=== PATIENT | male | born 1955 | race Caucasian/White ===

== ENCOUNTER 2019-09-10 03:53 | Inpatient (IN) | payer OTHER, SELFPAY ==
[2019-09-10] VITALS (16 sets, daily range): BP systolic 100–158; BP diastolic 54–99; PULSE 67–119; RESP 16–34; TEMP 36–36.6; O2SAT 84–100; BMI 16.2
--- NOTE | ~2019-09-10 | XR_ITS ---
EXAMINATION: XR chest 1V portable DATE: 09/14/2019 10:17 INDICATION: Left pneumothorax. TECHNIQUE: A single frontal view of the chest was obtained. COMPARISON: Chest 2 views 09/13/2019 FINDINGS: A calcified left lung nodule is consistent with old granulomatous disease. There is mild at electasis at left lung base. No pleural effusion or pneumothorax. A left-sided chest tube is noted. T here is gas in left chest wall. IMPRESSION: 1. No pneumothorax. Left-sided chest tube in expected position. 2. Mild atelectasis at left lung base. Reviewed, dictated and finalized at location A.
--- NOTE | ~2019-09-10 | XR_ITS ---
EXAMINATION: XR chest-chest tube insert/pos EXAM DATE: 09/11/2019 08:14 INDICATION: Left pneumothorax. TECHNIQUE: Portable AP frontal chest x-ray was obtained. Comparison is made to prior examination from 556 a.m. same date. FINDINGS: Again there is a large left pneumothorax with mild contralateral midline shift indicating c ould be under some tension. There is a left-sided large caliber chest tube which is extending along t he lateral aspect of the thoracic wall, may not be within the pleural cavity given pneumothorax appea rs unchanged. There is collapsed left lung. Right lung is clear. Hyperinflation likely indicating und erlying emphysema and/or COPD. No pleural effusion. Cardiomediastinal silhouette is normal. IMPRESSION: 1. Large left pneumothorax unchanged. 2. Left chest tube which might be along thoracic wall rather than in the pleural cavity. I phoned this finding to nurse caring for patient in 344, who reports that Dr. Lucho Barajas revi ewed the image and has already repositioned the tube. Reviewed, dictated and finalized at location B. IMPRESSION: 1. Large left pneumothorax unchanged. 2. Left chest tube which might be along thoracic wall rather than in the pleur al cavity. I phoned this finding to nurse caring for patient in 344, who reports that Dr. Lucho Barajas reviewed the image and has already repositioned the tube.
--- NOTE | ~2019-09-10 | XR_ITS ---
EXAMINATION: XR chest 1V portable DATE: 09/11/2019 06:05 INDICATION: Pneumothorax. TECHNIQUE: A single frontal view of the chest was obtained. COMPARISON: Chest single view at 12:48 AM. FINDINGS: There is a large left pneumothorax. There are airspace opacities in the collapsed left lung , likely atelectasis. No pleural effusion. The heart size is normal. There is gas in left chest wall and left neck. There are old healed left rib fractures. IMPRESSION: 1. Worsened large left pneumothorax. Reviewed, dictated and finalized at location A.
--- NOTE | ~2019-09-10 | XR_ITS ---
EXAMINATION: XR chest-chest tube insert/pos DATE: 09/10/2019 05:07 INDICATION: Left pneumothorax status post chest tube placement. TECHNIQUE: A single frontal view of the chest was obtained. COMPARISON: Chest single view at 4:11 AM. FINDINGS: The lungs are hyperexpanded with lucencies, consistent with emphysema. There is mild atelec tasis in left mid and lower lung zones. No pleural effusion or pneumothorax. There is a left-sided ch est tube in expected position. There is gas in left chest wall. The heart size is normal. The central pulmonary arteries are enlarged, consistent with pulmonary arterial hypertension. IMPRESSION: 1. No pneumothorax. Left-sided chest tube in expected position. 2. Mild atelectasis in left mid and lower lung zones. 3. Emphysema. Reviewed, dictated and finalized at location A.
--- NOTE | ~2019-09-10 | XR_ITS ---
EXAMINATION: XR chest 1V portable DATE: 09/12/2019 06:51 INDICATION: Left pneumothorax. TECHNIQUE: A single frontal view of the chest was obtained. COMPARISON: Chest single view 09/11/2019 FINDINGS: There is mild atelectasis in left mid and lower lung zones. No pleural effusion or pneumoth orax. There is a left-sided chest tube in expected position. The heart size is normal. Again seen is gas in left chest wall. IMPRESSION: 1. No pneumothorax. Left-sided chest tube in expected position. 2. Mild atelectasis in left mid and lower lung zones. Reviewed, dictated and finalized at location A.
--- NOTE | ~2019-09-10 | XR_ITS ---
EXAMINATION: XR chest 1V portable DATE: 09/13/2019 06:31 INDICATION: Left pneumothorax. TECHNIQUE: A single frontal view of the chest was obtained on 2 radiographs. COMPARISON: Chest single view 09/12/2019 FINDINGS: There is mild atelectasis in right lower lung zone and left mid and lower lung zones. Calci fied pulmonary nodules and calcified hilar lymph nodes are consistent with old granulomatous disease. No pleural effusion or pneumothorax. There is a left-sided chest tube in expected position. The hear t size is normal. Again seen is gas in left chest wall. Pneumomediastinum is noted. IMPRESSION: 1. No pneumothorax. Left-sided chest tube in expected position. 2. Persistent pneumomediastinum. 3. Worsened mild atelectasis in right lower lung zone and left mid and lower lung zones. Reviewed, dictated and finalized at location A. IMPRESSION: 1. No pneumothorax. Left-sided chest tube in expected position. 2. Persistent pneumomediastinum. 3. Worsened mild atelectasis in right lower lung zone and left mid and lower raquel ng zones.
--- NOTE | ~2019-09-10 | XR_ITS ---
EXAMINATION: XR chest 1V portable DATE: 09/11/2019 01:06 INDICATION: Left pneumothorax status post chest tube removal. TECHNIQUE: A single frontal view of the chest was obtained. COMPARISON: Chest single view 09/10/2019 FINDINGS: There is a recurrent large left pneumothorax. There are airspace opacities in left lung, li alina atelectasis. No pleural effusion. The heart size is normal. There is mild rightward shift of the mediastinum. There is gas in left chest wall. There are old healed left rib fractures. IMPRESSION: 1. Recurrent large left pneumothorax. Dr. Beltran discussed this result with Sarah Shahid on 09/11/19 at 1 :16 AM. Reviewed, dictated and finalized at location A. IMPRESSION: 1. Recurrent large left pneumothorax. Dr. Beltran discussed this result with Sarah Shahid on 09/11/19 at 1:16 AM.
--- NOTE | ~2019-09-10 | XR_ITS ---
EXAMINATION: XR chest-chest tube insert/pos DATE: 09/11/2019 08:40 INDICATION: Left pneumothorax status post chest tube placement. TECHNIQUE: A single frontal view of the chest was obtained. COMPARISON: Chest single view at 800 a.m. FINDINGS: There is mild atelectasis in left lung. Calcified pulmonary nodules and calcified hilar lym ph nodes are consistent with old granulomatous disease. No pleural effusion or pneumothorax. There is a left-sided chest tube in expected position. There is gas in left chest wall. The heart size is nor mal. IMPRESSION: 1. No pneumothorax. Left-sided chest tube in expected position. 2. Mild atelectasis in left lung. Reviewed, dictated and finalized at location A.
--- NOTE | ~2019-09-10 | XR_ITS ---
EXAMINATION: XR chest 1V portable DATE: 09/15/2019 06:33 INDICATION: Left pneumothorax. TECHNIQUE: A single frontal view of the chest was obtained. COMPARISON: Chest single view 09/14/2019 FINDINGS: The patient is rotated to his left. There is mild atelectasis at left lung base. No pleural effusion or pneumothorax. The heart size is normal. There is gas in left chest wall. There is a left -sided chest tube in expected position. IMPRESSION: 1. No pneumothorax. Left-sided chest tube in expected position. 2. Mild atelectasis at left lung base. Reviewed, dictated and finalized at location A.
--- NOTE | ~2019-09-10 | XR_ITS ---
EXAMINATION: XR chest 1V portable DATE: 09/16/2019 05:57 INDICATION: Left pneumothorax. TECHNIQUE: A single frontal view of the chest was obtained. COMPARISON: Chest single view 09/15/2019 FINDINGS: There is mild atelectasis at left lung base. No pleural effusion or pneumothorax. There is a left-sided chest tube in expected position. The heart size is normal. There is gas in left chest wa ll. IMPRESSION: 1. No pneumothorax. Left-sided chest tube in expected position. 2. Mild atelectasis at left lung base. Reviewed, dictated and finalized at location A.
--- NOTE | ~2019-09-10 | XR_ITS ---
EXAMINATION: XR chest 1V portable DATE: 09/10/2019 04:22 INDICATION: Shortness of breath. TECHNIQUE: A single frontal view of the chest was obtained. COMPARISON: None. FINDINGS: The lungs are hyperexpanded with lucencies, consistent with emphysema. There is a large lef t pneumothorax. No pleural effusion. The heart size is normal. IMPRESSION: 1. Large left pneumothorax. 2. Emphysema. Reviewed, dictated and finalized at location A.
--- NOTE | ~2019-09-10 | XR_ITS ---
EXAMINATION: XR chest 2V DATE: 09/13/2019 12:03 INDICATION: Left pneumothorax. TECHNIQUE: Frontal and lateral views of the chest were obtained. COMPARISON: Chest single view at 5:54 AM FINDINGS: There is mild atelectasis in left mid and lower lung zones. There is a tiny left pneumothor ax. There is a left-sided chest tube in expected position. No pleural effusion. The heart size is nor mal. There is gas in left chest wall. The heart size is normal. IMPRESSION: 1. Tiny left pneumothorax. Left-sided chest tube in expected position. 2. Mild atelectasis in left mid and lower lung zones. Reviewed, dictated and finalized at location A.
--- NOTE | 2019-09-10 03:34 | ED.SOB ---
HPI - SOB/Dyspnea General Chief Complaint: Shortness of Breath/Dyspnea Stated Complaint: SOB Time Seen by Provider: 09/10/19 03:30 Source: patient Mode of arrival: EMS Limitations: no limitations History of Present Illness HPI Narrative: A 63 y/o male pt has presented to the ED via EMS with c/o SOB that began tonight. Pt reports associated midsternal CP, and describes the pain as achy. Pt denies rhinorrhea, sore throat, or fever. Pt states that he has a h/o COPD and asthma. He also reports smoking 1 ppd. Pt denies a h/o heart failure or recent surgery. He also denies drinking, drugs, or recent sick contacts. Pt was previously hospitalized 1 month ago. Pt was at one point on 6L of oxygen, but he is currently on 4L of oxygen in the ED bed. Pt does not normally receive oxygen at home. MD elicited complaint: shortness of breath Pertinent past history: COPD and asthma Onset (ago): hour(s) (earlier tonight) Known history of: COPD and asthma Associated symptoms: chest pain (midsternal, achy) Related Data Home oxygen amount: none Home Medications Medication Instructions Recorded Confirmed No Home Medications 09/10/19 09/10/19 Allergies Allergy/AdvReac Type Severity Reaction Status Date / Time No Known Allergies Allergy Verified 09/10/19 03:52 Review of Systems Review of Systems: All systems reviewed & are unremarkable except as noted in HPI and below Constitutional: Constitutional: Denies fever(s) ENT: Denies sore throat and Denies other (rhinorrhea) Cardiovascular: Cardiovascular: Reports chest pain (midsternal, achy) Respiratory: Respiratory: Reports dyspnea PMFSH Past Medical History Medical History Asthma COPD (chronic obstructive pulmonary disease) Surgical History Surgical History No pertinent past surgical history Social History Social History Smoking packs per day: 1 Smoking cigarettes per day: 20.0 Smoking status: Current every day smoker Tobacco type: cigarettes Alcohol intake: never Substance use: never Gender identity (if verbalized by the patient): Male Exam Narrative: Exam Narrative: GENERAL: Uncomfortable/anxious-appearing, thin, and inmoderate distress. HEAD: Normocephalic, atraumatic. EYES: PERRL and EOMI. ENT: Mucous membranes moist. CHEST: Diminished breath sounds throughout with increased respiratory rate. Speaking in 5-7 word sentence. Supraclavicular retractions noted. HEART: Tachycardic and regular. Normal peripheral pulses. ABDOMEN: Soft, nontender, nondistended. EXTREMITIES: Normal range of motion. No edema. SKIN: Warm, dry, no rash. NEURO: Alert and oriented x3. PSYCH: Anxious with normal thought content.. Course Reevaluation(s) Reevaluation #1: Discussed with Dr. Thayer. Accepted pt. Suction 20cm H2O. Lung reinflated on post chest x-ray. Date: 09/10/19 Time: 05:02 Reevaluation #2: Patient is still anxious requires a lot of redirection. He is aware he has a chest tube in his side but he is constantly wanting to move out of the bed. He has been been educated that if he pulls his chest tube this could be life-threatening. Patient's oxygen is been down titrated with success. Breath sounds auscultated bilaterally. Date: 09/10/19 Time: 05:41 Vital Signs Vital signs: Vital Signs Respiratory Rate 34 H 09/10/19 03:43 Temperature 97.4 F L 09/10/19 05:40 Pulse Rate 94 09/10/19 05:40 Respiratory Rate 18 09/10/19 05:40 Blood Pressure 112/75 09/10/19 05:40 Pulse Oximetry 100 09/10/19 05:40 Procedures Chest Tube Chest Tube 1: Chest Tube Date: 09/10/19 Chest Tube Time: 04:40 Chest Tube Location: left, mid axillary line and fourth interspace Tube Type: quik thal Chest Tube Prep: Yes other Anesthetic: with epi Amount of anesthesia used (mL): 6 Incis
[2019-09-10] MEDS: ALBUTEROL SULFATE NEB 2.5 MG/0.5 ML INH 5 MG INHALATION (03:37)
[2019-09-10] MEDS: IPRATROPIUM BR 0.02% INH SOLN 0.5 MG/2.5 ML VIAL INHALATION (03:37)
--- NOTE | 2019-09-10 03:37 | ECG_ITS ---
Measurements Intervals [place] Rate: 118 P: 83 GA: 146 QRS: 87 QRSD: 88 T: 66 QT: 307 QTc: 430 Interpretive Statements SINUS TACHYCARDIA CANNOT RULE OUT SEPTAL INFARCT, AGE INDETERMINATE BASELINE ARTIFACT- I, II, III, AVL, AVF, V4-V6 ABNORMAL ECG Electronically Signed On 09-10-2019 6:59:41 CDT by Jori Henning D.O.
[2019-09-10 03:53] LABS: Basophils Absolute Auto 0.1 K/mm3 (0.0-0.1); Basophils Percent Auto 0.9 % (0.2-1.2); Eosinophils Absolute Auto 0.6 K/mm3 (0-0.3); Eosinophils Percent Auto 3.5 % (0-4.4); Hematocrit 49.7 % (42.0-52.0); Immature Granulocyte Absolute 0.13 K/mm3 (0.00-0.031); Immature Granulocyte Percent A 0.8 % (0-0.5); Lymphocytes Absolute Auto 6.72 K/mm3 (0.9-3.2); Lymphocytes Percent Auto 41.9 % (18.3-44.2); Mean Corpuscular HGB Conc 32.2 g/dl (32-36); Mean Corpuscular Hemoglobin 29.1 pg (26-34); Mean Corpuscular Volume 90.5 fl (80-100); Mean Platelet Volume 9.7 fl (7.4-10.4); Monocytes Percent Auto 6.5 % (2.6-8.5); Neutrophils Absolute Auto 7.5 K/mm3 (1.3-6.7); Neutrophils Percent Auto 46.4 % (45.5-73.1); Platelet Count Result 396 k/mm3 (150-375); Red Blood Count 5.49 M/mm3 (4.6-6.20); Red Cell Distribution Width 13.1 % (11.5-14.5); White Blood Count 16.1 K/mm3 (4.5-10.0)
[2019-09-10] MEDS: LORAZEPAM INJ 2 MG/ML VIAL 1 MG IV PUSH (03:56)
[2019-09-10 04:12] LABS: Alanine Aminotransferase 16 U/L (4-50); Albumin Level 4.2 g/dL (3.5-5.1); Alkaline Phosphatase 83 U/L (38-126); Aspartate Amino Transferase 24 U/L (17-59); Bilirubin,Total 0.2 mg/dL (0.2-1.3); Blood Urea Nitrogen 19 mg/dL (9-20); Calcium 9.1 mg/dL (8.4-10.2); Carbon Dioxide 35 mmol/L (22-30); Chloride 101 mmol/L (98-107); Estimated CRCL calculation 80 ml/min; Estimated Glomerular Filt Rate > 60; Glucose 181 mg/dL (75-110); Potassium 4.1 mmol/L (3.4-5.0); Sodium 140 mmol/L (137-145)
[2019-09-10 04:13] LABS: Alveolar/Arterial O2 Gradient 558.2 mmHg; Base Excess ABG -0.3 mEq/l (+/-2.0); Carboxyhemoglobin 2.6 % THb (0-2.0); Fractional Inspired Oxygen 100 %; HCO3 ABG 29.1 mEq/l (22.0-26.0); Methemoglobin ABG 0.4 %THb (0-1.5); Oxygen Content ABG 21.2 %vol (16.0-22.0); Oxygen Saturation ABG 94.7 % (95.0-100.0); Oxyhemoglobin 92.3 % THb (90.0-100.0); PO2 ABG 86.2 mmHg (80.0-100.0); PO2 FiO2 Ratio Arterial Blood 0.86 %; Reduced Hemoglobin 4.7 %THb (0-5.0); Total Hemoglobin 16.3 g/dL (12.0-18.0)
[2019-09-10 04:15] LABS: pH ABG 7.246 (7.350-7.450)
[2019-09-10 04:16] LABS: Device NON-REBREATHER MASK; Modified Allen's Test Pass; PCO2 ABG 68.6 mmHg (35.0-45.0); Site Drawn LEFT RADIAL
[2019-09-10] MEDS: MIDAZOLAM HCL 2 MG/2 ML VIAL 1 MG IV PUSH (04:30)
--- NOTE | 2019-09-10 05:30 | ECG_ITS ---
Measurements Intervals [place] Rate: 103 P: 81 TX: 148 QRS: 75 QRSD: 85 T: 79 QT: 317 QTc: 416 Interpretive Statements SINUS TACHYCARDIA CANNOT RULE OUT SEPTAL INFARCT, AGE INDETERMINATE BORDERLINE T WAVE ABNORMALITY- LATERAL LEADS BASELINE ARTIFACT- I, II, III, AVR, AVL, AVF, V3-V5 ABNORMAL ECG Electronically Signed On 09-10-2019 7:01:35 CDT by Jori Henning D.O.
--- NOTE | 2019-09-10 06:41 | ADMGEN ---
This patient, Bebo Mayes, was admitted to Medical Room 344-01. Patient/family oriented to hospital policies and general routines including ID bracelet, bed and alarms, visiting hours, pain management, procedures, bathroom and other care routines, personal items, smoking policy, room service/diet, and visiting hours. Valuables list has been completed. Information on how to activate the Rapid Response Team has been discussed. Patient/Family are encouraged to report perceived risks to care and to ask questions if they do not understand what they are told or what they should do.
--- NOTE | 2019-09-10 12:20 | PM.IMHP ---
H&P: HPI History of Present Illness Chief complaint: pneumothorax Narrative: Bebo Mayes is a 63 year old male who presented to the emergency department this morning with shortness of breath. He was also experiencing chest pain. This had been worsening overnight, but he has had some symptoms building up to this over the past 2 weeks. He denies a history of fall or trauma. He has never had any problems with collapsed lungs in the past. He does have a history of COPD, and continues to smoke cigarettes daily. He has been self isolating due to the recent coronavirus outbreak, and he denies any contact with any known positive patients. He denies any fevers. Review of Systems Review of Systems: All systems reviewed & are unremarkable except as noted in HPI and below Eyes: Eyes: Denies change in vision ENT: Denies hearing loss, Denies neck pain and Denies sore throat Cardiovascular: Cardiovascular: Reports as per HPI, Reports chest pain and Reports dyspnea Respiratory: Respiratory: Reports as per HPI and Reports dyspnea Genitourinary: Genitourinary: Denies hematuria and Denies dysuria Musculoskeletal: Musculoskeletal: Denies arthralgias, Denies joint swelling and Denies neck pain Allergic/Immunologic: Allergic/Immunologic: Denies wheezing PMFSH Past Medical History Medical History Asthma COPD (chronic obstructive pulmonary disease) Surgical History Surgical History No pertinent past surgical history Social History Social History Smoking packs per day: 1 Smoking cigarettes per day: 20.0 Years smoked: 40 Smoking pack-years: 40.00 Smoking status: Current every day smoker Tobacco type: cigarettes Alcohol intake: former Substance use: never Gender identity (if verbalized by the patient): Male Spiritual care concerns: No Agree to blood products: Yes Meds Home Medications and Allergies Home Medications Medication Instructions Recorded Confirmed Type No Home Medications 09/10/19 09/10/19 History Allergies Allergy/AdvReac Type Severity Reaction Status Date / Time No Known Allergies Allergy Verified 09/10/19 03:52 Vital Signs Vital Signs - 24 hr 09/10/19 03:43 09/10/19 03:46 09/10/19 03:54 Temperature 36.0 C L Pulse Rate 119 H 104 H Respiratory Rate 34 H 24 H 26 H Blood Pressure 158/74 H 140/99 H Pulse Oximetry 88 L 84 L 09/10/19 04:45 09/10/19 05:15 09/10/19 05:21 Temperature Pulse Rate 109 H 99 107 H Respiratory Rate 23 H 18 Blood Pressure 129/89 127/90 Pulse Oximetry 100 100 09/10/19 05:40 09/10/19 06:10 09/10/19 06:39 Temperature 36.3 C L 36.6 C Pulse Rate 94 90 Respiratory Rate 18 21 H Blood Pressure 112/75 118/76 Pulse Oximetry 100 100 98 09/10/19 08:00 09/10/19 12:00 Temperature Pulse Rate 90 79 Respiratory Rate Blood Pressure Pulse Oximetry Exam Const: General: alert; No acute distress Orientation/consciousness: patient oriented x3 Limitations: no limitations HENMT: Head: normocephalic and atraumatic Ears: hearing grossly normal bilaterally General nose exam: Normal external nose present and Normal nares present Mouth: Yes Normal oral and palatal mucosa present and Yes moist mucous membranes Eyes: General: appearance normal, both eyes and all related structures Conjunctivae: conjunctivae normal Sclera: sclerae normal Pupils: Equal, round and reactive pupils present EOM: EOMs intact bilaterally Neck: Neck: normal visual inspection, full ROM, no lymphadenopathy, supple and no JVD Lymphatic: no lymphadenopathy noted Chest: Chest palpation & inspection: normal inspection of the chest Resp: Effort & Inspection: normal respiratory effort and able to speak in complete sentences Auscultation: clear to auscultation bilaterally Percussion: perc
[2019-09-11] VITALS (10 sets, daily range): BP systolic 98–102; BP diastolic 71–82; PULSE 67–86; RESP 16; TEMP 36–36.8; O2SAT 95–100; BMI 16.2
[2019-09-11 05:40] LABS: Hematocrit 47.7 % (42.0-52.0); Hemoglobin 15.6 g/dL (14.0-18.0); Mean Corpuscular HGB Conc 32.7 g/dl (32-36); Mean Corpuscular Hemoglobin 29.4 pg (26-34); Mean Platelet Volume 9.7 fl (7.4-10.4); Platelet Count Result 319 k/mm3 (150-375); Red Cell Distribution Width 13.1 % (11.5-14.5); White Blood Count 15.5 K/mm3 (4.5-10.0)
[2019-09-11 06:00] LABS: Blood Urea Nitrogen 24 mg/dL (9-20); Carbon Dioxide 35 mmol/L (22-30); Chloride 97 mmol/L (98-107); Estimated CRCL calculation 83 ml/min; Estimated Glomerular Filt Rate > 60; Glucose 112 mg/dL (75-110); Potassium 4.4 mmol/L (3.4-5.0); Sodium 135 mmol/L (137-145)
--- NOTE | 2019-09-11 09:07 | P.OP_ITS ---
Procedure Note - Detailed Date of procedure: 09/11/19 Pre-op diagnosis: pneumothorax Left pneumothorax Post-op diagnosis: same Procedure performed: placement of left-sided chest tube Description of procedure: After signed consent and with a nurse present, a time-out was performed. Following this we exposed the entire left chest and the old dressing was removed. I then prepped the area with chlorhexidine. Then u sing sterile technique I carefully removed the old suture that was present. Following this an a 18 [place] chest tube was opened sterile on my table. I then carefully probed the opening and found the entry between 2 ribs. Local anesthetic using 2% xylocaine with epinephrine was instilled into the entire area and the skin at the previous chest tube site on the left. This was at about the 5th to 6th rib level. Following this a hemostat was used to carefully probe the area and I found the space between 2 ribs and with spreading there was a wosch of air. Initially the chest tube seemed to tunnel along the chest wall when I tried to advance it into the chest cavity, and after an initial chest x- ray showed still a pneumothorax, I repositioned the tube through this opening and inserted up it up to 18 cm. at the skin level. Following this there was good humidity seen in the tube and good bubbling of the Pleur-Evac once we hooked it up. The tube was then sutured in using 2- 0 silk which was placed as a vertical mattress fashion and wrapped around the tube after placing 1 throw in it at the skin level. This held the tube in place nicely. Xeroform gauze and 4 x 4 were cut appropriately and placed around the exit site and taped in position with 3 pieces of nylon tape. Patient tolerated the procedure very well I used about 10 cc of local anesthetic. The second chest x-ray showed chest tube in good position with the tip I in the left apex and the lung completely reinflated. Anesthesia: local ( 2% xylocaine with epinephrine) Surgeon: Lucho Barajas MD Title Insurance Sales Representative: LOREN Parr, floor nurse Estimated blood loss (mL): 5 Drains: Yes ( left-sided chest tube 18 [place]ian) Packing: No Pathology: none sent Complications: No immediate complications Condition: stable Disposition: floor ( procedure done at bedside) Findings: by x-ray: resolution of large left pneumothorax
--- NOTE | 2019-09-11 11:24 | PM.PNGS ---
Progress Note: A&P Assessment and Plan (1) Pneumothorax: Qualifiers: Pneumothorax type: spontaneous, primary Qualified Code(s): J93.11 - Primary spontaneous pneumothorax Code(s): J93.9 - Pneumothorax, unspecified Status: Acute Assessment and Plan: D/C telemetry Get repeat CXR in AM Encourage IS (2) COPD (chronic obstructive pulmonary disease): Code(s): J44.9 - Chronic obstructive pulmonary disease, unspecified Status: Acute (3) Tobacco abuse: Code(s): Z72.0 - Tobacco use Status: Acute Subjective Subjective Date/Time Seen: 09/11/19 11:24 Chest tube had to be replaced this AM. CXR looks like tube in proper position. Exam Resp: Effort & Inspection: normal respiratory effort Auscultation: clear to auscultation bilaterally Objective Data Vital Signs Vital Signs: Vital Signs - 24 hr 09/10/19 12:00 09/10/19 14:00 09/10/19 16:00 Temperature 36.6 C Pulse Rate 79 85 85 Respiratory Rate 20 Blood Pressure 101/75 Pulse Oximetry 100 09/10/19 19:21 09/10/19 20:00 09/10/19 21:56 Temperature 36.1 C L Pulse Rate 67 68 Respiratory Rate 16 16 Blood Pressure 100/54 L Pulse Oximetry 97 99 99 09/11/19 00:00 09/11/19 00:07 09/11/19 00:45 Temperature Pulse Rate 83 68 68 Respiratory Rate 16 16 Blood Pressure Pulse Oximetry 99 99 09/11/19 04:00 09/11/19 06:21 09/11/19 09:15 Temperature 36.1 C L Pulse Rate 86 67 Respiratory Rate 16 Blood Pressure 100/71 Pulse Oximetry 96 100 09/11/19 09:58 Temperature Pulse Rate Respiratory Rate Blood Pressure Pulse Oximetry 100 Intake/Output Intake/Output: Intake & Output 09/08/19 09/09/19 09/10/19 09/11/19 23:59 23:59 23:59 23:59 Intake Total 180 490 Output Total 300 Balance 180 190 Meds/Results Medications: Active Medications Generic Name Dose Route Start Last Admin Trade Name Freq PRN Reason Stop Dose Admin Hydrocodone Bitart/Acetaminophen 1 tab 09/10/19 10:11 09/11/19 10:11 [place] 5-325 Mg PO 1 tab Q4H PRN Administration Pain Rated 4-6 Hydrocodone Bitart/Acetaminophen 1 tab 09/10/19 10:11 09/11/19 03:55 [place] 10-325 Mg PO 1 tab Q4H PRN Administration Pain Rated 7-10 Ibuprofen 600 mg 09/10/19 10:11 Motrin PO Q6H PRN Pain Rated 1-3 Ondansetron HCl 4 mg 09/10/19 05:03 Zofran Inj IV PUSH Q4H PRN Nausea Radiology Results: ITS Impressions Chest X-Ray 09/11/19 08:48 IMPRESSION: 1. No pneumothorax. Left-sided chest tube in expected position. 2. Mild atelectasis in left lung. Labs Labs: Laboratory Results - last 24 hr 09/11/19 09/11/19 04:59 04:59 WBC 15.5 H RBC 5.30 Hgb 15.6 Hct 47.7 MCV 90.0 MCH 29.4 MCHC 32.7 RDW 13.1 Plt Count 319 MPV 9.7 Sodium 135 L Potassium 4.4 Chloride 97 L Carbon Dioxide 35 H BUN 24 H Creatinine 0.60 L Estim Creat Clear Calc 83 Estimated GFR > 60 Glucose 112 H Calcium 9.0
[2019-09-12 06:00] VITALS: BP 100/58; PULSE 75; RESP 15; TEMP 36.4; O2SAT 95
[2019-09-12 08:26] VITALS: O2SAT 100
--- NOTE | 2019-09-12 11:49 | PM.PNGS ---
Progress Note: A&P Assessment and Plan (1) Pneumothorax: Qualifiers: Pneumothorax type: spontaneous, primary Qualified Code(s): J93.11 - Primary spontaneous pneumothorax Code(s): J93.9 - Pneumothorax, unspecified Status: Acute Assessment and Plan: Will put the patient on water seal today. Repeat chest x-ray in the am. Encouraged patient to walk the halls and continued IS use. (2) COPD (chronic obstructive pulmonary disease): Code(s): J44.9 - Chronic obstructive pulmonary disease, unspecified Status: Acute (3) Tobacco abuse: Code(s): Z72.0 - Tobacco use Status: Acute Additional Plan Discussed plan of care with Dr. Thayer. Subjective Subjective Date/Time Seen: 09/12/19 11:00 Patient reports: no new complaints Interval history: Patient seen and examined. Denies shortness of breath or difficulty breathing. Reports pain in the left chest where chest tube was inserted. States he does not want to cough or get up because of pain, but refusing pain medication this morning. No other complaints at this time. Review of Systems Review of Systems: All systems reviewed & are unremarkable except as noted in HPI and below Exam Const: General: comfortable and no acute distress Orientation/consciousness: patient oriented x3 Resp: Effort & Inspection: normal respiratory effort and able to speak in complete sentences Auscultation: diminished lung sounds (diminished throughout but clear, no adventitous breath sounds) Other: Left chest tube in place with scant serosanguineous output. No evidence of air leak within the Pleur-Evac. Cardio: Rate: regular rate Rhythm: regular rhythm Neuro: General: patient oriented x3, moves all extremities and no focal motor deficits Extrem: General: normal to inspection and capillary refill normal Objective Data Vital Signs Vital Signs: Vital Signs - 24 hr 09/11/19 14:00 09/11/19 21:00 09/12/19 06:00 Temperature 36.0 C L 36.8 C 36.4 C Pulse Rate 81 77 75 Respiratory Rate 16 16 15 Blood Pressure 98/73 L 102/82 100/58 L Pulse Oximetry 96 95 95 09/12/19 08:26 Temperature Pulse Rate Respiratory Rate Blood Pressure Pulse Oximetry 100 Intake/Output Intake/Output: Intake & Output 09/09/19 09/10/19 09/11/19 09/12/19 23:59 23:59 23:59 23:59 Intake Total 180 1170 315 Output Total 750 300 Balance 180 420 15 Meds/Results Medications: Active Medications Generic Name Dose Route Start Last Admin Trade Name Freq PRN Reason Stop Dose Admin Hydrocodone Bitart/Acetaminophen 1 tab 09/10/19 10:11 09/11/19 16:43 [place] 5-325 Mg PO 1 tab Q4H PRN Administration Pain Rated 4-6 Hydrocodone Bitart/Acetaminophen 1 tab 09/10/19 10:11 09/12/19 02:37 [place] 10-325 Mg PO 1 tab Q4H PRN Administration Pain Rated 7-10 Ibuprofen 600 mg 09/10/19 10:11 Motrin PO Q6H PRN Pain Rated 1-3 Ondansetron HCl 4 mg 09/10/19 05:03 Zofran Inj IV PUSH Q4H PRN Nausea Radiology Results: ITS Impressions Chest X-Ray 09/12/19 06:54 IMPRESSION: 1. No pneumothorax. Left-sided chest tube in expected position. 2. Mild atelectasis in left mid and lower lung zones.
[2019-09-12 14:00] VITALS: BP 101/62; PULSE 77; RESP 16; TEMP 37.4; O2SAT 94
[2019-09-12 21:34] VITALS: BP 109/71; PULSE 89; RESP 14; TEMP 36.9; O2SAT 95
[2019-09-13 05:55] VITALS: BP 101/75; PULSE 80; RESP 18; TEMP 36.8; O2SAT 95
--- NOTE | 2019-09-13 06:02 | PC.NURSE ---
denies the need to use the bathroom; refused to try.
[2019-09-13 08:00] VITALS: RESP 14; O2SAT 95
--- NOTE | 2019-09-13 11:18 | PM.PNGS ---
Progress Note: A&P Assessment and Plan (1) Pneumothorax: Qualifiers: Pneumothorax type: spontaneous, primary Qualified Code(s): J93.11 - Primary spontaneous pneumothorax Code(s): J93.9 - Pneumothorax, unspecified Status: Acute Assessment and Plan: Air leak noted today. I have a feeling this was just temporary as the CXR this AM did not show a pneumothorax. Will get a 2 view CXR this afternoon to reassess now that Pleuovac was fixed. Keep on water seal today if CXR looks ok. Possibly remove chest tube tomorrow and home tomorrow if no recurrent pneumothorax. (2) COPD (chronic obstructive pulmonary disease): Code(s): J44.9 - Chronic obstructive pulmonary disease, unspecified Status: Acute (3) Tobacco abuse: Code(s): Z72.0 - Tobacco use Status: Acute Subjective Subjective Date/Time Seen: 09/13/19 11:18 Air leak noted at connector to Pleuorvac this AM. Patient has been picking at tape, but prior to this morning, nurse had not noted any air leak. CXR this AM also showed no residual pneumothorax. Exam Resp: Effort & Inspection: normal respiratory effort Auscultation: clear to auscultation bilaterally Other: Chest tube placed to suction and air leak noted initially. After being on suction and reinforcing the tape around the connector, no further air leak noted. Placed back to water seal and no air leak noted. Objective Data Vital Signs Vital Signs: Vital Signs - 24 hr 09/12/19 14:00 09/12/19 21:34 09/13/19 05:55 Temperature 37.4 C 36.9 C 36.8 C Pulse Rate 77 89 80 Respiratory Rate 16 14 18 Blood Pressure 101/62 109/71 101/75 Pulse Oximetry 94 95 95 09/13/19 08:00 Temperature Pulse Rate Respiratory Rate 14 Blood Pressure Pulse Oximetry 95 Intake/Output Intake/Output: Intake & Output 09/10/19 09/11/19 09/12/19 09/13/19 23:59 23:59 23:59 23:59 Intake Total 180 1170 875 297 Output Total 750 300 Balance 180 420 575 297 Meds/Results Medications: Active Medications Generic Name Dose Route Start Last Admin Trade Name Freq PRN Reason Stop Dose Admin Hydrocodone Bitart/Acetaminophen 1 tab 09/10/19 10:11 09/11/19 16:43 [place] 5-325 Mg PO 1 tab Q4H PRN Administration Pain Rated 4-6 Hydrocodone Bitart/Acetaminophen 1 tab 09/10/19 10:11 09/12/19 02:37 [place] 10-325 Mg PO 1 tab Q4H PRN Administration Pain Rated 7-10 Ibuprofen 600 mg 09/10/19 10:11 Motrin PO Q6H PRN Pain Rated 1-3 Ondansetron HCl 4 mg 09/10/19 05:03 Zofran Inj IV PUSH Q4H PRN Nausea Radiology Results: ITS Impressions Chest X-Ray 09/13/19 06:55 IMPRESSION: 1. No pneumothorax. Left-sided chest tube in expected position. 2. Persistent pneumomediastinum. 3. Worsened mild atelectasis in right lower lung zone and left mid and lower lung zones.
--- NOTE | 2019-09-13 11:49 | PCNFU ---
Nutrition Follow-Up Complete: Underweight R/T reduced appetite and COPD as evidence by BMI of 16.2 Goal: PO intake of 75% or greater of meals to maintain wt met Goal. Pt current nutrition is Regular . Nutrition recommendation: Agree Last recorded weight is 54.2 kg. Bowel Motility:+BM reported 09/11. Labs Reviewed:BUN 24,Cr 0.65,Glu 112,Na 135 Meds Noted:Hydrocodone Additional Notes: Spoke with nursing today for patient follow up 2/2 to COVID-19 precautions. Patient intake has been 70,95,100% of most meals. He had declined diet supplements. Agree with diet orders. Per Surgery report, they plan to remove chest tube tomorrow and home tomorrow if no recurrent pneumothorax. No further nutritional interventions needed at this time. Monitoring: PO intake, wt, labs every 7 days
[2019-09-13 14:30] VITALS: BP 109/83; PULSE 75; RESP 16; TEMP 36.9; O2SAT 94
[2019-09-13 20:50] VITALS: BP 104/66; PULSE 71; RESP 16; TEMP 37; O2SAT 95
[2019-09-14 06:00] VITALS: BP 109/71; PULSE 78; RESP 18; TEMP 36.5; O2SAT 94
--- NOTE | 2019-09-14 09:32 | PC.NURSE ---
Per Dr. Obando, it is OK to give the one time dose of toradol and hold the Ibuprofen for 6 hours. Patient has not previously received Ibuprofen.
--- NOTE | 2019-09-14 10:00 | PC.NURSE ---
Dr. Obando notified of bubbling in the water seal chamber intermittently with expiration. He say patient at bedside. Instructed to give patient pain medication, hook to suction and order STAT chest XR. Patient placed on suction per Dr. Pro orders and Stat chest XR ordered to verify if there is a leak. Patients water seal chamber was bubbling after placed on suction. CXR ordered. Will call Dr. Obando with results.
--- NOTE | 2019-09-14 12:21 | PM.PNGS ---
Progress Note: A&P Assessment and Plan (1) Pneumothorax: Qualifiers: Pneumothorax type: spontaneous, primary Qualified Code(s): J93.11 - Primary spontaneous pneumothorax Code(s): J93.9 - Pneumothorax, unspecified Status: Acute Assessment and Plan: Persistent pleural leak. Will put patient back on suction and recheck chest x-ray. Continue suction and repeat chest x-ray with clinical follow-up again tomorrow. Patient has already had chest tube replaced for coming out inadvertently 3 days ago. (2) COPD (chronic obstructive pulmonary disease): Code(s): J44.9 - Chronic obstructive pulmonary disease, unspecified Status: Chronic (3) Tobacco abuse: Code(s): Z72.0 - Tobacco use Status: Chronic Subjective Subjective Date/Time Seen: 09/14/19 12:21 Patient reports: no new complaints (Still frustrated with continued treatment of pneumothorax.), still having pain ( From chest tube) and afebrile Review of Systems Review of Systems: All systems reviewed & are unremarkable except as noted in HPI and below ( HPI) Exam Const: General: comfortable, no acute distress, alert and awake Nutritional Appearance: thin Orientation/consciousness: patient oriented x3 Chest: Chest palpation & inspection: normal inspection of the chest ( left chest tube dressing dry and intact. Persistent pleural leak seen) Resp: Effort & Inspection: normal respiratory effort, no audible wheezes and no cough Auscultation: clear to auscultation bilaterally and crackles on the left at the base Other: persistent pleural leak seen on water seal suction. Objective Data Vital Signs Vital Signs: Vital Signs - 24 hr 09/13/19 14:30 09/13/19 20:50 09/14/19 06:00 Temperature 36.9 C 37.0 C 36.5 C Pulse Rate 75 71 78 Respiratory Rate 16 16 18 Blood Pressure 109/83 104/66 109/71 Pulse Oximetry 94 95 94 Intake/Output Intake/Output: Intake & Output 09/11/19 09/12/19 09/13/19 09/14/19 23:59 23:59 23:59 23:59 Intake Total 1170 875 812 780 Output Total 750 300 440 Balance 420 575 812 340 Meds/Results Medications: Active Medications Generic Name Dose Route Start Last Admin Trade Name Freq PRN Reason Stop Dose Admin Acetaminophen 500 mg 09/14/19 12:17 Tylenol Tablet PO Q6H PRN Mild Pain (1-3) or Fever Hydrocodone Bitart/Acetaminophen 1 tab 09/10/19 10:11 09/11/19 16:43 [place] 5-325 Mg PO 1 tab Q4H PRN Administration Pain Rated 4-6 Hydrocodone Bitart/Acetaminophen 1 tab 09/10/19 10:11 09/14/19 09:42 [place] 10-325 Mg PO 1 tab Q4H PRN Administration Pain Rated 7-10 Enoxaparin Sodium 40 mg 09/15/19 09:00 Lovenox SUB-Q DAILY [facility] Ketorolac Tromethamine 30 mg 09/14/19 12:17 Toradol Inj IV PUSH 09/19/19 12:18 Q6H PRN Pain Rated 4-6 Morphine Sulfate 2 mg 09/14/19 12:17 Morphine Sulfate Inj IV PUSH Q2H PRN Pain Rated 7-10 Ondansetron HCl 4 mg 09/10/19 05:03 Zofran Inj IV PUSH Q4H PRN Nausea Pantoprazole Sodium 40 mg 09/15/19 09:00 Protonix PO QAM ARJUN Pantoprazole Sodium 40 mg 09/14/19 12:20 Protonix PO 09/14/19 12:21 ONCE ONE Radiology Results: ITS Impressions Chest X-Ray 09/14/19 10:20 IMPRESSION: 1. No pneumothorax. Left-sided chest tube in expected position. 2. Mild atelectasis at left lung base.
[2019-09-14] MEDS: PANTOPRAZOLE 40 MG TABLET PO (13:34)
--- NOTE | 2019-09-14 13:55 | PC.NURSE ---
Dr. Obando is aware of persistent minimal bubbling in chamber even after canister change. He hopes it will improve with continued wall suction.
[2019-09-14 14:00] VITALS: BP 105/70; PULSE 78; RESP 18; TEMP 36.2; O2SAT 94
[2019-09-14 20:52] VITALS: BP 113/77; PULSE 78; RESP 16; TEMP 37; O2SAT 94
[2019-09-15 05:48] VITALS: BP 100/71; PULSE 75; RESP 18; TEMP 36.8; O2SAT 99
--- NOTE | 2019-09-15 09:41 | PM.PNGS ---
Progress Note: A&P Assessment and Plan (1) Pneumothorax: Qualifiers: Pneumothorax type: spontaneous, primary Qualified Code(s): J93.11 - Primary spontaneous pneumothorax Code(s): J93.9 - Pneumothorax, unspecified Status: Acute Assessment and Plan: lung fully expanded but still has evidence of air leak. Continue Pleur-Evac to suction. May need transfer and VATS procedure. (2) COPD (chronic obstructive pulmonary disease): Code(s): J44.9 - Chronic obstructive pulmonary disease, unspecified Status: Chronic (3) Tobacco abuse: Code(s): Z72.0 - Tobacco use Status: Chronic Subjective Subjective Date/Time Seen: 09/15/19 09:41 Patient reports: no new complaints Review of Systems Review of Systems: All systems reviewed & are unremarkable except as noted in HPI and below ( HPI) Constitutional: Constitutional: Reports fatigue and Reports lethargy Exam Chest: Chest palpation & inspection: abnormal inspection of the chest ( left chest tube. Still some bubbling consistent with pleural leak) Resp: Effort & Inspection: normal respiratory effort, able to speak in complete sentences and no cough Auscultation: clear to auscultation bilaterally Objective Data Vital Signs Vital Signs: Vital Signs - 24 hr 09/14/19 14:00 09/14/19 20:52 09/15/19 05:48 Temperature 36.2 C L 37.0 C 36.8 C Pulse Rate 78 78 75 Respiratory Rate 18 16 18 Blood Pressure 105/70 113/77 100/71 Pulse Oximetry 94 94 99 Intake/Output Intake/Output: Intake & Output 09/12/19 09/13/19 09/14/19 09/15/19 23:59 23:59 23:59 23:59 Intake Total 990 453 6196 734 Output Total 300 840 Balance 575 812 540 734 Meds/Results Medications: Active Medications Generic Name Dose Route Start Last Admin Trade Name Freq PRN Reason Stop Dose Admin Acetaminophen 500 mg 09/14/19 12:17 Tylenol Tablet PO Q6H PRN Mild Pain (1-3) or Fever Hydrocodone Bitart/Acetaminophen 1 tab 09/10/19 10:11 09/15/19 07:51 [place] 5-325 Mg PO 1 tab Q4H PRN Administration Pain Rated 4-6 Hydrocodone Bitart/Acetaminophen 1 tab 09/10/19 10:11 09/14/19 09:42 [place] 10-325 Mg PO 1 tab Q4H PRN Administration Pain Rated 7-10 Enoxaparin Sodium 40 mg 09/15/19 09:00 Lovenox SUB-Q DAILY [facility] Ketorolac Tromethamine 30 mg 09/14/19 12:17 Toradol Inj IV PUSH 09/19/19 12:18 Q6H PRN Pain Rated 4-6 Morphine Sulfate 2 mg 09/14/19 12:17 Morphine Sulfate Inj IV PUSH Q2H PRN Pain Rated 7-10 Ondansetron HCl 4 mg 09/10/19 05:03 Zofran Inj IV PUSH Q4H PRN Nausea Pantoprazole Sodium 40 mg 09/15/19 09:00 Protonix PO QAM [facility] Radiology Results: ITS Impressions Chest X-Ray 09/15/19 07:44 IMPRESSION: 1. No pneumothorax. Left-sided chest tube in expected position. 2. Mild atelectasis at left lung base. Imaging Attestation: I personally reviewed and interpreted this imaging study as follows: ( portable chest x-ray) My impression: no pneumothorax, subcutaneous emphysema, chest tube in good position. Radiologist's impression: No pneumothorax
[2019-09-15] MEDS: ENOXAPARIN 40 MG/0.4 ML SYRINGE SUB-Q (09:59)
[2019-09-15] MEDS: PANTOPRAZOLE 40 MG TABLET PO (10:00)
[2019-09-15 14:50] VITALS: BP 122/84; PULSE 83; RESP 18; TEMP 36.3; O2SAT 97
[2019-09-15 20:28] VITALS: BP 99/57; PULSE 78; RESP 16; TEMP 37.1; O2SAT 95
[2019-09-15 22:30] VITALS: PULSE 78; RESP 16; O2SAT 95
--- NOTE | 2019-09-16 00:12 | PC.NURSE ---
PT was found standing in room, chair alarm battery was taken out, and chair alarm pad was taken off the chair and on the floor. Pt educated on reason for chair. Will continue to monitor.
[2019-09-16 05:22] VITALS: BP 96/66; PULSE 81; RESP 16; TEMP 36.4; O2SAT 95
[2019-09-16 09:11] VITALS: RESP 16; O2SAT 92
[2019-09-16] MEDS: ENOXAPARIN 40 MG/0.4 ML SYRINGE SUB-Q (09:11)
[2019-09-16] MEDS: PANTOPRAZOLE 40 MG TABLET PO (09:11)
--- NOTE | 2019-09-16 13:19 | PM.TDS ---
Transfer Discharge Sum: Prov Provider Date of admission: 09/10/19 09:08 Primary care physician: Steve Spangler MD Admitting clinician: Eliezer Thayer DO Attending physician on admission: Eliezer Thayer Consults: 09/10/19 Consult to Respiratory Therapy Routine Reason for Consult:: COPD, pneumothorax Attending physician on discharge: Eliezer Thayer Discharging clinician: Mahogany Disla Anticipated date of transfer: 09/16/19 Receiving physician/facility: Dr. Cornell at [facility]. DS: Diagnosis Admitting Diagnosis Admitting Diagnosis: Primary spontaneous pneumothorax Discharge Diagnosis (1) Pneumothorax: Qualifiers: Pneumothorax type: spontaneous, primary Qualified Code(s): J93.11 - Primary spontaneous pneumothorax Code(s): J93.9 - Pneumothorax, unspecified Status: Acute Assessment and Plan: Persistent air leak noted again today. Chest x-ray with the chest tube to wall suction shows no pneumothorax with full expansion of the lung. After attempting to clamp the chest tube, the patient became short of breath and required this to be placed back to suction. He will need evaluation by a Thoracic Surgeon and transfer to a tertiary care facility. See plan below. (2) COPD (chronic obstructive pulmonary disease): Code(s): J44.9 - Chronic obstructive pulmonary disease, unspecified Status: Chronic (3) Tobacco abuse: Code(s): Z72.0 - Tobacco use Status: Chronic Assessment and Plan: Current everyday smoker. Discussed the importance of cessation. Transfer Discharge Sum: Med Medications Active and Home Medications: Home Medications No Home Medications 09/10/19 [History Confirmed 09/10/19] Active Medications Acetaminophen (Tylenol Tablet) 500 mg PO Q6H PRN PRN Reason: Mild Pain (1-3) or Fever Hydrocodone Bitart/Acetaminophen ([place] 5-325 Mg) 1 tab PO Q4H PRN PRN Reason: Pain Rated 4-6 Last Admin: 09/15/19 22:29 Dose: 1 tab Documented by: Hydrocodone Bitart/Acetaminophen ([place] 10-325 Mg) 1 tab PO Q4H PRN PRN Reason: Pain Rated 7-10 Last Admin: 09/16/19 11:52 Dose: 1 tab Documented by: Enoxaparin Sodium (Lovenox) 40 mg SUB-Q DAILY [facility] Last Admin: 09/16/19 09:11 Dose: 40 mg Documented by: Ketorolac Tromethamine (Toradol Inj) 30 mg IV PUSH Q6H PRN PRN Reason: Pain Rated 4-6 Stop: 09/19/19 12:18 Morphine Sulfate (Morphine Sulfate Inj) 2 mg IV PUSH Q2H PRN PRN Reason: Pain Rated 7-10 Ondansetron HCl (Zofran Inj) 4 mg IV PUSH Q4H PRN PRN Reason: Nausea Pantoprazole Sodium (Protonix) 40 mg PO [facility] Last Admin: 09/16/19 09:11 Dose: 40 mg Documented by: Transfer Discharge Sum: Hosp Hospital Course Hospital course: Bebo Mayes is a 63 year old male with a history of COPD and current tobacco use smoking 1 PPD for the past 40 years, who presented to the emergency department with shortness of breath and chest pain. This had been worsening overnight, but he has had some symptoms building up to this over the past 2 weeks. He denies a history of fall or trauma. He has never had any problems with collapsed lungs in the past. He has been self isolating due to the recent coronavirus outbreak, and he denies any contact with any known positive patients. He had denied any fevers or chills. The patient was found to have a left pneumothorax in the ER and a chest tube was placed by the ED provider. The post chest tube placement x-ray showed full re-expansion of his lung. The pneumothorax is thought to be likely caused by a bleb. The patient was admitted to the medical floor and started on incentive spirometry and analgesics. Early in the morning on 09/11/19 the patient's chest tube was accidentally removed. He was monitored with serial chest x-rays and redeveloped a large left pneumothorax, therefore a new left-sided chest tube was inserted on 09/11/19 and follow-up chest x-ray showed full re-expansion of his lung. The patient has since b
[2019-09-16 14:00] VITALS: BP 106/76; PULSE 72; RESP 16; TEMP 37; O2SAT 95
== END 2019-09-16 19:30 | disposition short-term general hospital (02) | DRG 201 ==
LOC: ANHED 05:21 → ANH3MED 05:34
PROVIDERS: Admitting Provider Surgery; Emergency Provider Emergency Medicine; PCP Emergency Medicine; Visit Provider Surgery
DX: J93.11 Primary spontaneous pneumothorax (principal); J44.9 Chronic obstructive pulmonary disease, unspecified; F17.210 Nicotine dependence, cigarettes, uncomplicated; J95.812 Postprocedural air leak
CPT/HCPCS: 32551; 36415; 36600; 71045; 71046; 80048; 80053; 82375; 82805; 83050; 85025; 85027; 93005; 94640; 96374; 96375; 99291; A9270; C1729; G0378; J1650; J2060; J2250